=== PATIENT | male | born 1955 | race Caucasian/White ===

== ENCOUNTER 2019-02-10 23:47 | Inpatient (IN) | payer OTHER ==
[2019-02-11] MEDS ORDERED: ZOLPIDEM 5 MG TAB PO (02:30)
[2019-02-11] MEDS: SOD CHLORIDE 0.9% 250 ML IV (03:00)
[2019-02-11] MEDS: DEXTROSE 5%-0.45% NACL 1,000 ML IV ×2 (04:00→17:24)
[2019-02-11] MEDS: CEFTRIAXONE 1 GM/50 ML (PMX) 50 ML IVPB (04:05)
[2019-02-11] MEDS: HYDROCODONE/APAP (10/325) TAB PO (04:09)
[2019-02-11] MEDS ORDERED: PENDING SANTYL ORDER FOR WOUND CARE XX (05:00)
[2019-02-11 06:24] LABS: ABNORMAL IP MESSAGE 1; HEMATOCRIT 24.7 % (42.0-52.0); HEMOGLOBIN 8.5 g/dl (14.0-18.0); MEAN CORPUSCULAR HEMOGLOBIN 31.6 pg (29.0-33.0); MEAN CORPUSCULAR HGB CONC 34.4 g/dl (32.0-37.0); MEAN CORPUSCULAR VOLUME 91.8 fl (82.0-101.0); MEAN PLATELET VOLUME 11.9 fl (7.4-10.4); NUCLEATED RED BLOOD CELLS% 0.1 /100WBC (0.0-0.0); PLATELET COUNT 44 10^3/UL (140-415); POSITIVE DIFF @See below; RED BLOOD COUNT 2.69 10^6/ul (4.70-6.10); RED CELL DISTRIBUTION WIDTH 15.9 % (11.5-14.5)
[2019-02-11 06:24] LABS: WHITE BLOOD COUNT 33.2 10^3/ul (4.8-10.8)
[2019-02-11 06:43] LABS: ADD MAN DIFF? YES
[2019-02-11 06:44] LABS: PATH REVIEW? YES
[2019-02-11] MEDS ORDERED: ONDANSETRON 4 MG INJ IV (07:00)
[2019-02-11 07:01] LABS: ALANINE AMINOTRANSFERASE 43 IU/L (13-69); ALBUMIN 2.2 g/dl (3.3-4.9); ALBUMIN/GLOBULIN RATIO 0.55; ALKALINE PHOSPHATASE 809 IU/L (42-121); ANION GAP 7 (5-13); ASPARTATE AMINO TRANSFERASE 58 IU/L (15-46); BLOOD UREA NITROGEN 12 mg/dl (7-20); CALCIUM 10.4 mg/dl (8.4-10.2); CARBON DIOXIDE 27 mmol/L (21-31); CHLORIDE 102 mmol/L (97-110); CREATININE 0.33 mg/dl (0.61-1.24); Estimated GFR > 60 mL/min (>60); GLUCOSE 70 mg/dl (70-220); SODIUM 136 mmol/L (135-144); TOTAL PROTEIN 6.2 g/dl (6.1-8.1)
[2019-02-11 07:06] LABS: BILIRUBIN,INDIRECT 1.1 mg/dl (0-1.1); BILIRUBIN,TOTAL 2.1 mg/dl (0.2-1.3)
[2019-02-11] MEDS: CREON (24K-76K-120K) 1 CAP PO ×3 (08:00→18:36)
[2019-02-11 09:57] LABS: ANISOCYTOSIS 1+ (0-0); BAND NEUTROPHILS #M 0.3 10^3/ul (0.0-0.6); BAND NEUTROPHILS % (M) 1 % (0-4); BURR CELLS 1+ (0-0); HYPOCHROMASIA 2+ (0-0); LYMPHOCYTES #M 0.3 10^3/ul (0.8-2.9); LYMPHOCYTES % (M) 1 % (15-51); MONOCYTE #M 1.9 10^3/ul (0.3-0.9); MONOCYTES % (M) 6 % (0-11); PLATELET ESTIMATE SIG DECREASED; POIKILOCYTOSIS 1+ (0-0); SEG NEUT #M 30.6 10^3/ul (1.6-7.5); SEGMENTED NEUTROPHILS (M) % 92 % (39-77); SMUDGE%M 3 % (0-0); TARGET CELLS 1+ (0-0); TOXIC GRANULATION 1+ (0-0)
[2019-02-11] MEDS: morphine 2 MG INJ IV ×2 (11:52→22:43)
[2019-02-11] MEDS: FAT EMULSION 20% 250 ML IV (17:24)
[2019-02-11] MEDS ORDERED: RIVAROXABAN 20 MG TABLET PO (18:00)
[2019-02-11] MEDS: PANTOPRAZOLE 40 MG INJ IV (18:36)
[2019-02-11] MEDS: METOCLOPRAMIDE 10 MG INJ IV (18:36)
[2019-02-11] MEDS: CEFEPIME 1GM/50 ML (PMX) 50 ML IVPB (20:36)
[2019-02-12] MEDS: HYDROCODONE/APAP (10/325) TAB PO ×4 (03:11→20:48)
[2019-02-12] MEDS: DEXTROSE 5%-0.45% NACL 1,000 ML IV ×3 (05:10→17:33)
[2019-02-12] MEDS: PANTOPRAZOLE 40 MG INJ IV ×2 (05:54→17:33)
[2019-02-12 06:08] LABS: ADD MAN DIFF? NO
[2019-02-12 06:17] LABS: ABNORMAL IP MESSAGE 1; BASOPHIL # 0.1 10^3/ul (0.0-0.1); BASOPHILS % 0.2 % (0.0-2.0); EOSINOPHILS % 0.1 % (0.0-7.0); HEMOGLOBIN 8.3 g/dl (14.0-18.0); LYMPHOCYTES # 1.3 10^3/ul (0.8-2.9); LYMPHOCYTES % 4.2 % (15.0-51.0); MEAN CORPUSCULAR HEMOGLOBIN 31.6 pg (29.0-33.0); MEAN CORPUSCULAR HGB CONC 34.6 g/dl (32.0-37.0); MEAN CORPUSCULAR VOLUME 91.3 fl (82.0-101.0); MEAN PLATELET VOLUME 12.7 fl (7.4-10.4); MONOCYTE # 2.2 10^3/ul (0.3-0.9); MONOCYTES % 7.2 % (0.0-11.0); NEUTROPHIL # 26.9 10^3/ul (1.6-7.5); NUCLEATED RED BLOOD CELLS% 0.1 /100WBC (0.0-0.0); PLATELET COUNT 62 10^3/UL (140-415); POSITIVE DIFF @See below; RED BLOOD COUNT 2.63 10^6/ul (4.70-6.10); RED CELL DISTRIBUTION WIDTH 16.1 % (11.5-14.5)
[2019-02-12 06:17] LABS: WHITE BLOOD COUNT 30.8 10^3/ul (4.8-10.8)
[2019-02-12 06:42] LABS: ANION GAP 8 (5-13); BLOOD UREA NITROGEN 11 mg/dl (7-20); CARBON DIOXIDE 25 mmol/L (21-31); CHLORIDE 101 mmol/L (97-110); CREATININE 0.28 mg/dl (0.61-1.24); Estimated GFR > 60 mL/min (>60); GLUCOSE 138 mg/dl (70-220); POTASSIUM 3.8 mmol/L (3.5-5.1); SODIUM 134 mmol/L (135-144)
[2019-02-12 06:55] LABS: PREALBUMIN < 3.0 mg/dl (17.6-36.0)
[2019-02-12] MEDS: CEFEPIME 1GM/50 ML (PMX) 50 ML IVPB ×2 (08:32→20:46)
[2019-02-12] MEDS: METOCLOPRAMIDE 10 MG INJ IV ×3 (08:32→17:33)
[2019-02-12] MEDS: morphine 2 MG INJ IV (08:32)
[2019-02-12] MEDS: FAT EMULSION 20% 250 ML IV (08:33)
[2019-02-12] MEDS: CREON (24K-76K-120K) 1 CAP PO ×3 (08:33→17:33)
[2019-02-12] MEDS ORDERED: *CONTINUE SAME TPN IV (15:30)
[2019-02-12 16:28] LABS: ALANINE AMINOTRANSFERASE 42 IU/L (13-69); ALBUMIN 2.2 g/dl (3.3-4.9); ALBUMIN/GLOBULIN RATIO 0.56; ALKALINE PHOSPHATASE 663 IU/L (42-121); ANION GAP 7 (5-13); ASPARTATE AMINO TRANSFERASE 72 IU/L (15-46); BILIRUBIN,INDIRECT 0.8 mg/dl (0-1.1); BILIRUBIN,TOTAL 1.7 mg/dl (0.2-1.3); BLOOD UREA NITROGEN 10 mg/dl (7-20); CARBON DIOXIDE 24 mmol/L (21-31); CHLORIDE 102 mmol/L (97-110); Estimated GFR > 60 mL/min (>60); GLUCOSE 95 mg/dl (70-220); MAGNESIUM 1.8 mg/dl (1.7-2.5); POTASSIUM 4.3 mmol/L (3.5-5.1); SODIUM 133 mmol/L (135-144); TOTAL PROTEIN 6.1 g/dl (6.1-8.1); TRIGLYCERIDES 123 mg/dl (0-149)
[2019-02-12 16:59] LABS: PREALBUMIN < 3.0 mg/dl (17.6-36.0)
[2019-02-12] MEDS: DRONABINOL 2.5 MG CAP PO (20:48)
[2019-02-12] MEDS ORDERED: TPN 1,000 ML IV (21:00)
[2019-02-13] MEDS: DEXTROSE 5%-0.45% NACL 1,000 ML IV (01:59)
[2019-02-13] MEDS: LORAZEPAM 2 MG INJ IV (04:26)
[2019-02-13 05:09] LABS: ADD MAN DIFF? NO
[2019-02-13 05:12] LABS: ABNORMAL IP MESSAGE 1; BASOPHIL # 0.1 10^3/ul (0.0-0.1); BASOPHILS % 0.2 % (0.0-2.0); EOSINOPHILS # 0.1 10^3/ul (0.0-0.5); EOSINOPHILS % 0.2 % (0.0-7.0); HEMATOCRIT 23.9 % (42.0-52.0); HEMOGLOBIN 8.3 g/dl (14.0-18.0); LYMPHOCYTES # 0.9 10^3/ul (0.8-2.9); LYMPHOCYTES % 2.7 % (15.0-51.0); MEAN CORPUSCULAR HEMOGLOBIN 31.4 pg (29.0-33.0); MEAN CORPUSCULAR HGB CONC 34.7 g/dl (32.0-37.0); MEAN CORPUSCULAR VOLUME 90.5 fl (82.0-101.0); MEAN PLATELET VOLUME 12.2 fl (7.4-10.4); MONOCYTES % 6.3 % (0.0-11.0); NEUTROPHIL # 28.5 10^3/ul (1.6-7.5); NEUTROPHILS % 88.8 % (39.0-77.0); PLATELET COUNT 76 10^3/UL (140-415); POSITIVE DIFF @See below; RED BLOOD COUNT 2.64 10^6/ul (4.70-6.10); RED CELL DISTRIBUTION WIDTH 16.5 % (11.5-14.5)
[2019-02-13 05:12] LABS: WHITE BLOOD COUNT 32.1 10^3/ul (4.8-10.8)
[2019-02-13] MEDS: PANTOPRAZOLE 40 MG INJ IV ×2 (05:33→17:30)
[2019-02-13 06:09] LABS: ALANINE AMINOTRANSFERASE 42 IU/L (13-69); ALBUMIN 2.1 g/dl (3.3-4.9); ALBUMIN/GLOBULIN RATIO 0.51; ALKALINE PHOSPHATASE 701 IU/L (42-121); ANION GAP 7 (5-13); ASPARTATE AMINO TRANSFERASE 59 IU/L (15-46); BILIRUBIN,INDIRECT 1.2 mg/dl (0-1.1); BILIRUBIN,TOTAL 2.5 mg/dl (0.2-1.3); BLOOD UREA NITROGEN 10 mg/dl (7-20); CALCIUM 10.3 mg/dl (8.4-10.2); CARBON DIOXIDE 25 mmol/L (21-31); CHLORIDE 102 mmol/L (97-110); CREATININE 0.31 mg/dl (0.61-1.24); Estimated GFR > 60 mL/min (>60); GLUCOSE 94 mg/dl (70-220); POTASSIUM 3.5 mmol/L (3.5-5.1); SODIUM 134 mmol/L (135-144); TOTAL PROTEIN 6.2 g/dl (6.1-8.1)
[2019-02-13 06:47] LABS: MAGNESIUM 1.6 mg/dl (1.7-2.5)
[2019-02-13 06:47] LABS: PHOSPHORUS 3.4 mg/dl (2.5-4.9)
[2019-02-13] MEDS: METOCLOPRAMIDE 10 MG INJ IV ×3 (08:34→17:30)
[2019-02-13] MEDS: CREON (24K-76K-120K) 1 CAP PO ×3 (08:35→17:30)
[2019-02-13] MEDS: CEFEPIME 1GM/50 ML (PMX) 50 ML IVPB (08:45)
[2019-02-13] MEDS: FAT EMULSION 20% 250 ML IV (08:45)
[2019-02-13] MEDS: DRONABINOL 2.5 MG CAP PO ×3 (08:49→20:23)
[2019-02-13] MEDS: TPN 1,000 ML IV (14:33)
[2019-02-13] MEDS ORDERED: TPN 1,000 ML IV (15:00)
[2019-02-13 17:03] LABS: ADD UMIC NO; UR ASCORBIC ACID 40 mg/dL (NEGATIVE); UR BILIRUBIN (Dip) 1+ mg/dL (NEGATIVE); UR BLOOD (Dip) NEGATIVE (NEGATIVE); UR CLARITY SLIGHTLY CLOUDY (CLEAR); UR COLOR AMBER (YELLOW); UR GLUCOSE (Dip) NEGATIVE (NEGATIVE); UR KETONES (Dip) NEGATIVE (NEGATIVE); UR LEUKOCYTE ESTERASE (Dip) NEGATIVE Leu/ul (NEGATIVE); UR MUCUS MANY /HPF (NONE SEEN); UR NITRITE (Dip) NEGATIVE (NEGATIVE); UR RBC 1 /HPF (0-5); UR SPECIFIC GRAVITY (Dip) 1.024 (1.003-1.030); UR TOTAL PROTEIN (Dip) NEGATIVE (NEGATIVE); UR UROBILINOGEN (Dip) 2+ mg/dL (NEGATIVE); UR WBC 4 /HPF (0-5)
[2019-02-13] MEDS: ACCU-CHEK XX ×2 (17:27→20:37)
[2019-02-14] MEDS: ACCU-CHEK XX ×6 (01:25→20:35)
[2019-02-14] MEDS: morphine 2 MG INJ IV (03:29)
[2019-02-14] MEDS: PANTOPRAZOLE 40 MG INJ IV ×2 (05:05→17:46)
[2019-02-14 07:12] LABS: ANION GAP 5 (5-13); BLOOD UREA NITROGEN 13 mg/dl (7-20); CARBON DIOXIDE 27 mmol/L (21-31); CHLORIDE 102 mmol/L (97-110); CREATININE 0.31 mg/dl (0.61-1.24); Estimated GFR > 60 mL/min (>60); GLUCOSE 121 mg/dl (70-220); MAGNESIUM 1.9 mg/dl (1.7-2.5); PHOSPHORUS 2.5 mg/dl (2.5-4.9); POTASSIUM 3.7 mmol/L (3.5-5.1); SODIUM 134 mmol/L (135-144)
[2019-02-14] MEDS: METOCLOPRAMIDE 10 MG INJ IV ×3 (08:15→17:46)
[2019-02-14] MEDS: FAT EMULSION 20% 250 ML IV (08:15)
[2019-02-14] MEDS: DRONABINOL 2.5 MG CAP PO ×3 (08:15→20:30)
[2019-02-14] MEDS: CREON (24K-76K-120K) 1 CAP PO ×3 (08:15→17:52)
[2019-02-14] MEDS: HYDROCODONE/APAP (10/325) TAB PO (09:51)
[2019-02-14] MEDS: TPN 1,000 ML IV ×2 (10:23→23:54)
[2019-02-15] MEDS: ACCU-CHEK XX ×4 (01:05→21:00)
[2019-02-15] MEDS: TPN 1,000 ML IV ×2 (01:51→18:57)
[2019-02-15] MEDS: PANTOPRAZOLE 40 MG INJ IV ×2 (05:21→18:07)
[2019-02-15] MEDS: DRONABINOL 2.5 MG CAP PO ×2 (09:39→12:32)
[2019-02-15] MEDS: LUBIPROSTONE 24 MCG CAP PO ×2 (09:40→21:00)
[2019-02-15] MEDS: METOCLOPRAMIDE 10 MG INJ IV ×3 (09:42→18:07)
[2019-02-15] MEDS: CREON (24K-76K-120K) 1 CAP PO ×3 (09:42→18:08)
[2019-02-15] MEDS: FAT EMULSION 20% 250 ML IV (09:45)
[2019-02-15 10:37] LABS: ALPHA FETOPROTEIN 1.42 IU/L (0.00-7.21)
[2019-02-15] MEDS ORDERED: MAGNESIUM CITRATE 300 ML BTL PO (11:00)
[2019-02-15] MEDS: morphine 2 MG INJ IV (11:06)
[2019-02-16 05:58] LABS: ALANINE AMINOTRANSFERASE 54 IU/L (13-69); ALBUMIN 1.8 g/dl (3.3-4.9); ALBUMIN/GLOBULIN RATIO 0.48; ALKALINE PHOSPHATASE 530 IU/L (42-121); ANION GAP 4 (5-13); ASPARTATE AMINO TRANSFERASE 81 IU/L (15-46); BILIRUBIN,INDIRECT 0.9 mg/dl (0-1.1); BLOOD UREA NITROGEN 18 mg/dl (7-20); CALCIUM 10.5 mg/dl (8.4-10.2); CARBON DIOXIDE 27 mmol/L (21-31); CHLORIDE 105 mmol/L (97-110); CREATININE 0.29 mg/dl (0.61-1.24); Estimated GFR > 60 mL/min (>60); GLUCOSE 133 mg/dl (70-220); POTASSIUM 3.9 mmol/L (3.5-5.1); SODIUM 136 mmol/L (135-144); TOTAL PROTEIN 5.5 g/dl (6.1-8.1)
[2019-02-16] MEDS: PANTOPRAZOLE 40 MG INJ IV ×2 (06:00→18:25)
[2019-02-16 06:01] LABS: PHOSPHORUS 2.8 mg/dl (2.5-4.9)
[2019-02-16] MEDS: CREON (24K-76K-120K) 1 CAP PO ×3 (07:50→17:55)
[2019-02-16] MEDS: METOCLOPRAMIDE 10 MG INJ IV ×3 (08:40→18:25)
[2019-02-16] MEDS: FAT EMULSION 20% 250 ML IV (08:40)
[2019-02-16] MEDS: ACCU-CHEK XX ×2 (08:43→21:00)
[2019-02-16] MEDS: LUBIPROSTONE 24 MCG CAP PO ×2 (09:00→21:00)
[2019-02-16] MEDS: TPN 1,000 ML IV (12:53)
[2019-02-17] MEDS: TPN 1,000 ML IV (05:02)
[2019-02-17 05:38] LABS: ANION GAP 5 (5-13); BLOOD UREA NITROGEN 20 mg/dl (7-20); CALCIUM 11.6 mg/dl (8.4-10.2); CARBON DIOXIDE 27 mmol/L (21-31); CHLORIDE 108 mmol/L (97-110); CREATININE 0.36 mg/dl (0.61-1.24); Estimated GFR > 60 mL/min (>60); GLUCOSE 118 mg/dl (70-220); POTASSIUM 3.7 mmol/L (3.5-5.1); SODIUM 140 mmol/L (135-144)
[2019-02-17] MEDS: PANTOPRAZOLE 40 MG INJ IV (06:01)
[2019-02-17] MEDS: CREON (24K-76K-120K) 1 CAP PO ×3 (07:50→17:55)
[2019-02-17] MEDS: CHOLESTYRAMINE 4 GM PACKET PO (09:00)
[2019-02-17] MEDS: LUBIPROSTONE 24 MCG CAP PO ×2 (09:00→21:00)
[2019-02-17] MEDS: ACCU-CHEK XX (09:00)
[2019-02-17] MEDS: FAT EMULSION 20% 250 ML IV (09:00)
[2019-02-17] MEDS: METOCLOPRAMIDE 10 MG INJ IV ×3 (09:00→18:15)
[2019-02-18] MEDS: morphine 2 MG INJ IV (01:28)
[2019-02-18] MEDS: CREON (24K-76K-120K) 1 CAP PO ×3 (08:30→17:55)
[2019-02-18] MEDS: CHOLESTYRAMINE 4 GM PACKET PO (09:00)
[2019-02-18] MEDS: LUBIPROSTONE 24 MCG CAP PO ×2 (09:00→20:47)
[2019-02-18] MEDS: METOCLOPRAMIDE 10 MG INJ IV ×3 (09:38→17:55)
[2019-02-18] MEDS ORDERED: TPN 1,000 ML IV (15:06)
[2019-02-18] MEDS: ACCU-CHEK XX ×2 (18:00→20:48)
[2019-02-18] MEDS: TPN 1,000 ML IV (18:14)
[2019-02-18] MEDS: FAT EMULSION 20% 250 ML IV (18:14)
[2019-02-19] MEDS: ACCU-CHEK XX ×6 (00:52→20:33)
[2019-02-19 05:33] LABS: ABNORMAL IP MESSAGE 1; HEMATOCRIT 23.1 % (42.0-52.0); HEMOGLOBIN 7.5 g/dl (14.0-18.0); MEAN CORPUSCULAR HEMOGLOBIN 29.9 pg (29.0-33.0); MEAN CORPUSCULAR HGB CONC 32.5 g/dl (32.0-37.0); MEAN PLATELET VOLUME 12.3 fl (7.4-10.4); PLATELET COUNT 171 10^3/UL (140-415); POSITIVE DIFF @See below; RED BLOOD COUNT 2.51 10^6/ul (4.70-6.10); RED CELL DISTRIBUTION WIDTH 18.1 % (11.5-14.5)
[2019-02-19 06:14] LABS: ALKALINE PHOSPHATASE 430 IU/L (42-121); ANION GAP 2 (5-13); ASPARTATE AMINO TRANSFERASE 142 IU/L (15-46); BLOOD UREA NITROGEN 44 mg/dl (7-20); CARBON DIOXIDE 33 mmol/L (21-31); CHLORIDE 110 mmol/L (97-110); CREATININE 0.52 mg/dl (0.61-1.24); Estimated GFR > 60 mL/min (>60); GLUCOSE 170 mg/dl (70-220); MAGNESIUM 2.4 mg/dl (1.7-2.5); PHOSPHORUS 3.7 mg/dl (2.5-4.9); POTASSIUM 3.8 mmol/L (3.5-5.1); SODIUM 145 mmol/L (135-144); TRIGLYCERIDES 184 mg/dl (0-149)
[2019-02-19 06:33] LABS: ADD MAN DIFF? YES
[2019-02-19 07:32] LABS: PREALBUMIN < 3.0 mg/dl (17.6-36.0)
[2019-02-19] MEDS: CREON (24K-76K-120K) 1 CAP PO ×3 (07:50→17:55)
[2019-02-19] MEDS: METOCLOPRAMIDE 10 MG INJ IV ×3 (07:50→18:00)
[2019-02-19] MEDS: CHOLESTYRAMINE 4 GM PACKET PO (09:00)
[2019-02-19] MEDS: LUBIPROSTONE 24 MCG CAP PO ×2 (09:00→20:33)
[2019-02-19] MEDS: TPN 1,000 ML IV (09:43)
[2019-02-19] MEDS: SOD CHLORIDE 0.9% 500 ML IV (11:08)
[2019-02-19 11:16] LABS: ANISOCYTOSIS 2+ (0-0); BAND NEUTROPHILS #M 2.8 10^3/ul (0.0-0.6); BAND NEUTROPHILS % (M) 7 % (0-4); BURR CELLS 1+ (0-0); GIANT THROMBO% (M) 1 % (0-0); LYMPHOCYTES #M 0.4 10^3/ul (0.8-2.9); LYMPHOCYTES % (M) 1 % (15-51); MONOCYTE #M 1.2 10^3/ul (0.3-0.9); MONOCYTES % (M) 3 % (0-11); PLATELET ESTIMATE NORMAL; POIKILOCYTOSIS 1+ (0-0); POLYCHROMASIA 2+ (0-0); SEG NEUT #M 37.6 10^3/ul (1.6-7.5); SEGMENTED NEUTROPHILS (M) % 89 % (39-77); SMUDGE%M 1 % (0-0); TARGET CELLS 1+ (0-0)
[2019-02-19] MEDS: FAT EMULSION 20% 250 ML IV (17:15)
[2019-02-20] MEDS: TPN 1,000 ML IV (00:55)
[2019-02-20] MEDS: ACCU-CHEK XX ×2 (00:58→05:00)
[2019-02-20] MEDS: morphine 2 MG INJ IV ×2 (03:29→09:35)
[2019-02-20] MEDS ORDERED: ALBUTEROL/IPRATROPIUM (NEB) 3 ML AMP HHN (04:30)
[2019-02-20 05:01] LABS: ADD MAN DIFF? NO
[2019-02-20 05:11] LABS: WHITE BLOOD COUNT 41.3 10^3/ul (4.8-10.8)
[2019-02-20 05:11] LABS: ABNORMAL IP MESSAGE 1; BASOPHIL # 0.1 10^3/ul (0.0-0.1); BASOPHILS % 0.2 % (0.0-2.0); EOSINOPHILS % 0.1 % (0.0-7.0); HEMATOCRIT 21.9 % (42.0-52.0); LYMPHOCYTES # 1.1 10^3/ul (0.8-2.9); LYMPHOCYTES % 2.7 % (15.0-51.0); MEAN CORPUSCULAR HEMOGLOBIN 29.8 pg (29.0-33.0); MEAN CORPUSCULAR VOLUME 93.2 fl (82.0-101.0); MEAN PLATELET VOLUME 12.6 fl (7.4-10.4); MONOCYTE # 1.8 10^3/ul (0.3-0.9); MONOCYTES % 4.4 % (0.0-11.0); NEUTROPHIL # 37.5 10^3/ul (1.6-7.5); NEUTROPHILS % 90.8 % (39.0-77.0); NUCLEATED RED BLOOD CELLS% 0.1 /100WBC (0.0-0.0); PLATELET COUNT 118 10^3/UL (140-415); POSITIVE DIFF @See below; RED BLOOD COUNT 2.35 10^6/ul (4.70-6.10); RED CELL DISTRIBUTION WIDTH 18.4 % (11.5-14.5)
[2019-02-20 05:36] LABS: ALANINE AMINOTRANSFERASE 103 IU/L (13-69); ANION GAP 3 (5-13); ASPARTATE AMINO TRANSFERASE 135 IU/L (15-46); BLOOD UREA NITROGEN 45 mg/dl (7-20); CARBON DIOXIDE 32 mmol/L (21-31); CHLORIDE 113 mmol/L (97-110); CREATININE 0.51 mg/dl (0.61-1.24); Estimated GFR > 60 mL/min (>60); GLUCOSE 154 mg/dl (70-220); MAGNESIUM 2.1 mg/dl (1.7-2.5); PHOSPHORUS 3.1 mg/dl (2.5-4.9); POTASSIUM 3.2 mmol/L (3.5-5.1); SODIUM 148 mmol/L (135-144)
[2019-02-20 05:53] LABS: CALCIUM 14.5 mg/dl (8.4-10.2)
[2019-02-20] MEDS: CREON (24K-76K-120K) 1 CAP PO (07:50)
[2019-02-20] MEDS: CHOLESTYRAMINE 4 GM PACKET PO (09:00)
[2019-02-20] MEDS: LUBIPROSTONE 24 MCG CAP PO (09:00)
[2019-02-20 09:10] LABS: INR 1.53; PROTIME 18.5 Sec (11.9-14.9); PT RATIO 1.4
[2019-02-20] MEDS: morphine (DRIP) 100 MG/100 ML 100 ML IV ×2 (10:55→17:32)
[2019-02-20] MEDS: LORAZEPAM 2 MG INJ IV (11:51)
[2019-02-20] MEDS ORDERED: ACCU-CHEK XX (12:00)
[2019-02-20] MEDS ORDERED: METOCLOPRAMIDE 10 MG INJ IV (14:00)
== END 2019-02-21 03:30 | disposition expired | DRG 435 ==
LOC: MS1 02-15 06:42 → 6WM 23:47
DX: C25.9 Malignant neoplasm of pancreas, unspecified (principal); E43 Unspecified severe protein-calorie malnutrition; C79.51 Secondary malignant neoplasm of bone; Z68.1 Body mass index [BMI] 19.9 or less, adult; F05 Delirium due to known physiological condition; G93.40 Encephalopathy, unspecified; E83.52 Hypercalcemia; E86.0 Dehydration; G47.00 Insomnia, unspecified; K76.9 Liver disease, unspecified; R62.7 Adult failure to thrive; D63.0 Anemia in neoplastic disease; Z86.718 Personal history of other venous thrombosis and embolism; Z66 Do not resuscitate; H05.221 Edema of right orbit; E80.6 Other disorders of bilirubin metabolism; Z92.21 Personal history of antineoplastic chemotherapy; F17.200 Nicotine dependence, unspecified, uncomplicated; D72.829 Elevated white blood cell count, unspecified; D69.59 Other secondary thrombocytopenia; R74.0 Nonspecific elevation of levels of transaminase and lactic acid dehydrogenase [LDH]; Z51.5 Encounter for palliative care; R09.02 Hypoxemia
CPT/HCPCS: 71045; 74018; 74181; 76705; 80048; 80053; 81001; 81003; 82105; 82962; 83735; 84075; 84100; 84134; 84450; 84460; 84478; 85025; 85610; 87040-91; 87081; 92526; 92610; 93005; 97110; 97162; 97164; 97530